=== PATIENT | female | born 1970 | race Two or more races ===

== ENCOUNTER 2023-05-03 11:10 | Emergency (ER) | payer SELFPAY ==
[~2023-05-03] VITALS: Ht 157.5 cm; Wt 71.2 kg
[2023-05-03] MEDS ORDERED: SODIUM CHLORIDE 0.9% 1,000 ML IV ONE (11:30)
[2023-05-03 11:48] LABS: Hemoglobin 13.7 g/dL (12.2-16.2); Mean Corpuscular Hemoglobin 32.1 pg (28.0-32.0); Mean Corpuscular Hgb Conc. 34.2 g/dL (32.0-36.0); Mean Corpuscular Volume 93.8 fL (80.0-100.0); Red Blood Cells 4.27 10^6/uL (4.0-5.20); Red Cell Distribution Width 12.7 % (11.8-14.3); White Blood Cell 12.9 10^3/uL (4.4-10.8)
[2023-05-03 11:54] LABS: Band Neutrophils % (manual) 0; Basophils % (manual) 0 (0.0-2.0); Blast Cells 0; Metamyelocytes % 0; Myelocytes % 0; Promyelocytes % 0; Reactive Lymphocytes 0
[2023-05-03 12:09] LABS: Alanine Aminotransferase 13 U/L (7-40); Albumin 4.2 g/dL (3.2-4.8); Alkaline Phosphatase 85 U/L (46-116); Anion Gap 5 (5-15); Aspartate Aminotransferase 9 U/L (13-40); BUN/Creatinine Ratio 17.2 (10.0-20.0); Bilirubin, Total 0.7 mg/dL (0.2-1.0); Blood Urea Nitrogen 11 mg/dL (9-23); Calcium 8.6 mg/dL (8.7-10.4); Carbon Dioxide 26 mmol/L (20-30); Chloride 105 mmol/L (98-107); Glucose 133 mg/dL (74-106); Potassium 3.9 mmol/L (3.5-5.1); Sodium 136 mmol/L (136-145); Total Protein 7.1 g/dL (5.7-8.2)
[2023-05-03 13:14] LABS: Eosinophils % (manual) 1 (0-7); Lymphocytes % (manual) 2 (10.0-50.0); Monocytes % (manual) 1 (0-12); Platelet Estimate Adequate
[2023-05-03 13:24] LABS: Urine Bacteria NONE SEEN /hpf (None Seen); Urine Blood 3+ /uL (Negative); Urine Clarity HAZY (Clear); Urine Color PINK (Yellow); Urine Mucus FEW (None Seen); Urine Protein, UAD 1+ (Negative); Urine Specific Gravity 1.024 (1.001-1.035); Urine Sperm PRESENT /hpf (None Seen); Urine Urobilinogen Normal (Negative); Urine WBC 43 /hpf (0 - 5)
[2023-05-03 13:57] LABS: COVID19 ANTIGEN SOFIA FIA NEGATIVE (NEGATIVE)
[2023-05-03] MEDS ORDERED: CIPR-173 PO (14:09)
[2023-05-03 14:11] VITALS: BP 108/48; PULSE 109; RESP 18; TEMP 98.2; O2SAT 97
[2023-05-03] MEDS ORDERED: ZOFR4T PO (14:13)
== END 2023-05-03 14:22 | disposition home or self-care (01) ==
LOC: ER 11:10
DX: N39.0 Urinary tract infection, site not specified (principal); Z20.822 Contact with and (suspected) exposure to COVID-19
CPT/HCPCS: 36415; 71046; 80053; 81001; 85007; 85027; 87426; 93005; 96360; 99285; J7030

== ENCOUNTER 2023-07-08 23:55 | Inpatient (IN) | payer SELFPAY ==
[~2023-07-08] VITALS: Ht 165.1 cm; Wt 55.5 kg
[~2023-07-08 23:55] MED LIST: CIPR-173 PO; ZOFR4T PO
[2023-07-09 00:49] LABS: Urine Bacteria NONE SEEN /hpf (None Seen); Urine Blood 3+ /uL (Negative); Urine Clarity HAZY (Clear); Urine Color Yellow (Yellow); Urine Mucus FEW (None Seen); Urine Protein, UAD TRACE (Negative); Urine Specific Gravity 1.022 (1.001-1.035); Urine Urobilinogen Normal (Negative); Urine WBC 17 /hpf (0 - 5)
[2023-07-09 01:10] LABS: Basophils # (auto) 0 10 ^3/uL (0-0.2); Basophils % (auto) 0.1 % (0.0-2.0); Eosinophils # (auto) 0 10 ^3/uL (0-0.8); Eosinophils % (auto) 0.1 % (0.0-7.0); Hematocrit 37.3 % (36.0-46.0); Hemoglobin 12.4 g/dL (12.2-16.2); Lymphocytes # (auto) 1.1 10 ^3/uL (0.4-5.4); Lymphocytes % (auto) 6.3 % (10.0-50.0); Mean Corpuscular Hgb Conc. 33.3 g/dL (32.0-36.0); Mean Corpuscular Volume 93.1 fL (80.0-100.0); Monocytes % (auto) 5.4 % (0.0-12.0); Neutrophils # (auto) 15.7 10 ^3/uL (1.6-8.6); Neutrophils % (auto) 88.1 % (37.0-80.0); Red Blood Cells 4.01 10^6/uL (4.0-5.20); Red Cell Distribution Width 12.5 % (11.8-14.3); White Blood Cell 17.8 10^3/uL (4.4-10.8)
[2023-07-09 01:45] LABS: Alanine Aminotransferase 18 U/L (7-40); Albumin 4.5 g/dL (3.2-4.8); Alkaline Phosphatase 80 U/L (46-116); Anion Gap 5 (5-15); Aspartate Aminotransferase 16 U/L (13-40); BUN/Creatinine Ratio 15.4 (10.0-20.0); Bilirubin, Total 0.8 mg/dL (0.2-1.0); Blood Urea Nitrogen 10 mg/dL (9-23); Calcium 9.2 mg/dL (8.7-10.4); Carbon Dioxide 28 mmol/L (20-30); Chloride 103 mmol/L (98-107); Glucose 117 mg/dL (74-106); Lipase 25 U/L (12-53); Potassium 3.9 mmol/L (3.5-5.1); Sodium 136 mmol/L (136-145); Total Protein 7.5 g/dL (5.7-8.2)
[2023-07-09] MEDS ORDERED: SODIUM CHLORIDE 0.9% 1,000 ML IVB ONE (07:15)
[2023-07-09] MEDS ORDERED: MORPHINE SULFATE 4 MG/ML SYR/VIAL IV ONE (07:15)
[2023-07-09] MEDS ORDERED: ONDANSETRON HCL 4 MG/2 ML VIAL IV ONE (07:15)
[2023-07-09] MEDS ORDERED: metroNIDAZOLE 500MG/100ML 100 ML IV ONE (08:00)
[2023-07-09] MEDS ORDERED: PANTOPRAZOLE 40 MG/10 ML VIAL INJ IV ONE (08:45)
[2023-07-09] MEDS ORDERED: cefTRIAXone 1GM/50ML D5W 50 ML IV ONE (08:45)
[2023-07-09] MEDS: SODIUM CHLORIDE 0.9% 1,000 ML IV SCH ×2 (09:29→18:36)
[2023-07-09 09:30] VITALS: PULSE 68; RESP 16; O2SAT 96
[2023-07-09 09:42] LABS: Erythrocyte Sedimentation Rate 13 mm/hr (0-20)
[2023-07-09] MEDS: ENOXAPARIN SOD 40 MG/0.4 ML SYRINGE SC SCH (10:00)
[2023-07-09] MEDS: metroNIDAZOLE 500MG/100ML 100 ML IV SCH ×2 (15:54→20:50)
[2023-07-09 17:59] VITALS: BP 100/47; PULSE 92; RESP 16; TEMP 99.1; O2SAT 100
[2023-07-09 18:00] VITALS: BP 100/47; PULSE 92; RESP 16; TEMP 99.1; O2SAT 100
[2023-07-09] MEDS: ACETAMINOPHEN 325 MG TAB PO PRN (18:15)
[2023-07-09 22:00] VITALS: BP 97/37; PULSE 87; RESP 18; TEMP 98.6; O2SAT 97
[2023-07-10] VITALS (7 sets, daily range): BP systolic 93–104; BP diastolic 44–50; PULSE 81–97; RESP 16–20; TEMP 98.2–100.9; O2SAT 95–98
[2023-07-10] MEDS: SODIUM CHLORIDE 0.9% 1,000 ML IV SCH ×3 (01:25→13:24)
[2023-07-10] MEDS: metroNIDAZOLE 500MG/100ML 100 ML IV SCH ×3 (05:27→21:21)
[2023-07-10 06:33] LABS: Basophils # (auto) 0 10 ^3/uL (0-0.2); Basophils % (auto) 0.1 % (0.0-2.0); Eosinophils # (auto) 0 10 ^3/uL (0-0.8); Eosinophils % (auto) 0.1 % (0.0-7.0); Hematocrit 33.6 % (36.0-46.0); Hemoglobin 11.1 g/dL (12.2-16.2); Lymphocytes # (auto) 0.9 10 ^3/uL (0.4-5.4); Lymphocytes % (auto) 5.9 % (10.0-50.0); Mean Corpuscular Hemoglobin 30.8 pg (28.0-32.0); Mean Corpuscular Volume 93.3 fL (80.0-100.0); Monocytes # (auto) 0.8 10 ^3/uL (0-1.3); Monocytes % (auto) 5.5 % (0.0-12.0); Neutrophils # (auto) 12.9 10 ^3/uL (1.6-8.6); Neutrophils % (auto) 88.4 % (37.0-80.0); Red Cell Distribution Width 12.4 % (11.8-14.3); White Blood Cell 14.6 10^3/uL (4.4-10.8)
[2023-07-10 06:43] LABS: Alanine Aminotransferase 13 U/L (7-40); Albumin 3.7 g/dL (3.2-4.8); Alkaline Phosphatase 76 U/L (46-116); Anion Gap 7 (5-15); Aspartate Aminotransferase 11 U/L (13-40); Blood Urea Nitrogen 7 mg/dL (9-23); Calcium 8.1 mg/dL (8.7-10.4); Carbon Dioxide 24 mmol/L (20-30); Chloride 107 mmol/L (98-107); Glucose 104 mg/dL (74-106); Potassium 3.6 mmol/L (3.5-5.1); Sodium 138 mmol/L (136-145)
[2023-07-10 06:44] LABS: Bilirubin, Total 0.9 mg/dL (0.2-1.0); Total Protein 6.3 g/dL (5.7-8.2)
[2023-07-10] MEDS: PANTOPRAZOLE 40 MG/10 ML VIAL INJ IV SCH (09:39)
[2023-07-10] MEDS: cefTRIAXone 1GM/50ML D5W 50 ML IV SCH (09:39)
[2023-07-10] MEDS: ACETAMINOPHEN 325 MG TAB PO PRN ×2 (09:40→20:04)
[2023-07-10] MEDS: ENOXAPARIN SOD 40 MG/0.4 ML SYRINGE SC SCH (09:46)
[2023-07-11 04:37] VITALS: BP 98/49; PULSE 73; RESP 16; TEMP 99; O2SAT 98
[2023-07-11 06:09] LABS: Anion Gap 5 (5-15); Carbon Dioxide 26 mmol/L (20-30); Chloride 108 mmol/L (98-107); Potassium 3.6 mmol/L (3.5-5.1); Sodium 139 mmol/L (136-145)
[2023-07-11 06:11] LABS: INR 1.09 (0.9-1.15); Partial Thromboplastin Time 35.1 SEC (24.5-34.5); Prothrombin Time 11.4 sec (9.3-11.8)
[2023-07-11 06:15] LABS: BUN/Creatinine Ratio 9.3 (10.0-20.0); Blood Urea Nitrogen 5 mg/dL (9-23); Glucose 86 mg/dL (74-106)
[2023-07-11] MEDS: metroNIDAZOLE 500MG/100ML 100 ML IV SCH ×3 (06:23→21:22)
[2023-07-11] MEDS: SODIUM CHLORIDE 0.9% 1,000 ML IV SCH ×2 (06:25→21:21)
[2023-07-11 07:06] LABS: Basophils # (auto) 0 10 ^3/uL (0-0.2); Basophils % (auto) 0.2 % (0.0-2.0); Eosinophils # (auto) 0 10 ^3/uL (0-0.8); Eosinophils % (auto) 0.2 % (0.0-7.0); Hematocrit 32.3 % (36.0-46.0); Hemoglobin 10.7 g/dL (12.2-16.2); Lymphocytes # (auto) 0.9 10 ^3/uL (0.4-5.4); Lymphocytes % (auto) 7.1 % (10.0-50.0); Mean Corpuscular Hemoglobin 31.2 pg (28.0-32.0); Mean Corpuscular Hgb Conc. 33.3 g/dL (32.0-36.0); Monocytes % (auto) 7.8 % (0.0-12.0); Neutrophils # (auto) 10.5 10 ^3/uL (1.6-8.6); Neutrophils % (auto) 84.7 % (37.0-80.0); Red Blood Cells 3.43 10^6/uL (4.0-5.20); Red Cell Distribution Width 12.6 % (11.8-14.3); White Blood Cell 12.3 10^3/uL (4.4-10.8)
[2023-07-11 09:00] VITALS: BP 101/46; PULSE 77; RESP 20; TEMP 99.5; O2SAT 99
[2023-07-11] MEDS: cefTRIAXone 1GM/50ML D5W 50 ML IV SCH (09:59)
[2023-07-11] MEDS: PANTOPRAZOLE 40 MG/10 ML VIAL INJ IV SCH (09:59)
[2023-07-11 13:16] VITALS: BP 99/42; PULSE 84; RESP 20; TEMP 99.3; O2SAT 97
[2023-07-11 17:00] VITALS: BP 95/42; PULSE 91; RESP 20; O2SAT 98
[2023-07-11 22:00] VITALS: BP 89/60; PULSE 79; RESP 16; TEMP 98.7; O2SAT 97
[2023-07-12] MEDS: SODIUM CHLORIDE 0.9% 1,000 ML IV SCH ×3 (02:15→23:50)
[2023-07-12 05:00] VITALS: BP 97/64; PULSE 90; RESP 16; TEMP 98.2; O2SAT 99
[2023-07-12] MEDS: metroNIDAZOLE 500MG/100ML 100 ML IV SCH ×3 (06:01→21:27)
[2023-07-12 06:49] LABS: Basophils # (auto) 0 10 ^3/uL (0-0.2); Basophils % (auto) 0.3 % (0.0-2.0); Eosinophils # (auto) 0 10 ^3/uL (0-0.8); Eosinophils % (auto) 0.4 % (0.0-7.0); Hematocrit 32.8 % (36.0-46.0); Hemoglobin 10.9 g/dL (12.2-16.2); Lymphocytes # (auto) 1.1 10 ^3/uL (0.4-5.4); Lymphocytes % (auto) 10.2 % (10.0-50.0); Mean Corpuscular Hemoglobin 31.4 pg (28.0-32.0); Mean Corpuscular Hgb Conc. 33.2 g/dL (32.0-36.0); Mean Corpuscular Volume 94.7 fL (80.0-100.0); Monocytes # (auto) 0.9 10 ^3/uL (0-1.3); Monocytes % (auto) 8.5 % (0.0-12.0); Neutrophils # (auto) 8.3 10 ^3/uL (1.6-8.6); Neutrophils % (auto) 80.6 % (37.0-80.0); Red Blood Cells 3.46 10^6/uL (4.0-5.20); Red Cell Distribution Width 12.5 % (11.8-14.3); White Blood Cell 10.3 10^3/uL (4.4-10.8)
[2023-07-12 07:05] LABS: Anion Gap 11 (5-15); Carbon Dioxide 17 mmol/L (20-30); Chloride 110 mmol/L (98-107); Potassium 3.6 mmol/L (3.5-5.1); Sodium 138 mmol/L (136-145)
[2023-07-12 07:06] LABS: Calcium 8.4 mg/dL (8.5-10.1)
[2023-07-12 07:11] LABS: BUN/Creatinine Ratio 19.1 (10.0-20.0); Blood Urea Nitrogen 9 mg/dL (9-23); Glucose 53 mg/dL (74-106)
[2023-07-12 09:00] VITALS: BP 94/55; PULSE 74; RESP 17; TEMP 98.3; O2SAT 99
[2023-07-12] MEDS: PANTOPRAZOLE 40 MG/10 ML VIAL INJ IV SCH (09:44)
[2023-07-12] MEDS: cefTRIAXone 1GM/50ML D5W 50 ML IV SCH (09:45)
[2023-07-12 22:00] VITALS: BP 103/35; PULSE 81; RESP 15; TEMP 98.3; O2SAT 96
[2023-07-12] MEDS: ACETAMINOPHEN 325 MG TAB PO PRN (22:05)
[2023-07-13 05:00] VITALS: BP 100/39; PULSE 70; RESP 15; TEMP 98.4; O2SAT 95
[2023-07-13] MEDS: metroNIDAZOLE 500MG/100ML 100 ML IV SCH ×3 (05:39→22:00)
[2023-07-13 06:10] LABS: Basophils # (auto) 0 10 ^3/uL (0-0.2); Basophils % (auto) 0.4 % (0.0-2.0); Eosinophils # (auto) 0.1 10 ^3/uL (0-0.8); Eosinophils % (auto) 0.8 % (0.0-7.0); Hemoglobin 10.8 g/dL (12.2-16.2); Lymphocytes # (auto) 0.9 10 ^3/uL (0.4-5.4); Lymphocytes % (auto) 12.6 % (10.0-50.0); Mean Corpuscular Hemoglobin 32.3 pg (28.0-32.0); Mean Corpuscular Hgb Conc. 34.8 g/dL (32.0-36.0); Mean Corpuscular Volume 92.7 fL (80.0-100.0); Monocytes # (auto) 0.7 10 ^3/uL (0-1.3); Monocytes % (auto) 9.2 % (0.0-12.0); Neutrophils # (auto) 5.6 10 ^3/uL (1.6-8.6); Red Blood Cells 3.35 10^6/uL (4.0-5.20); Red Cell Distribution Width 12.3 % (11.8-14.3); White Blood Cell 7.2 10^3/uL (4.4-10.8)
[2023-07-13] MEDS: PANTOPRAZOLE 40 MG/10 ML VIAL INJ IV SCH (09:36)
[2023-07-13] MEDS: cefTRIAXone 1GM/50ML D5W 50 ML IV SCH (09:37)
[2023-07-13 10:13] VITALS: BP 109/66; PULSE 67; RESP 16; TEMP 98.4; O2SAT 99
[2023-07-13] MEDS ORDERED: OMNIPAQUE 12mg/ml 500ml ORAL SOLUTION PO ONE (11:51)
[2023-07-13 13:04] VITALS: BP 112/56; PULSE 69; RESP 16; TEMP 98.1; O2SAT 97
[2023-07-13] MEDS: SODIUM CHLORIDE 0.9% 1,000 ML IV SCH (14:11)
[2023-07-13 20:00] VITALS: RESP 16
[2023-07-13 22:00] VITALS: BP 102/52; PULSE 67; RESP 16; TEMP 98.3; O2SAT 98
[2023-07-14] VITALS (8 sets, daily range): BP systolic 99–108; BP diastolic 44–63; PULSE 63–101; RESP 10–20; TEMP 36.8; O2SAT 94–98
[2023-07-14] MEDS: SODIUM CHLORIDE 0.9% 1,000 ML IV SCH (02:30)
[2023-07-14] MEDS: metroNIDAZOLE 500MG/100ML 100 ML IV SCH ×3 (06:00→22:14)
[2023-07-14] MEDS ORDERED: ROCURONIUM 10MG/ML 10ML VIAL IV ONE (06:56)
[2023-07-14] MEDS ORDERED: SUCCINYLCHOLINE CHLORIDE 20 MG/ML 10ML VIAL IV ONE (06:56)
[2023-07-14] MEDS ORDERED: LIDOCAINE W/ EPINEPHRINE 1% 20ML VIAL ONE (07:00)
[2023-07-14] MEDS ORDERED: BUPIVACAINE HCL 0.25% P/F 10 ML VIAL ONE (07:00)
[2023-07-14] MEDS ORDERED: LIDOCAINE 2% JELLY 11ml (GLYDO) ONE (07:01)
[2023-07-14] MEDS ORDERED: ONDANSETRON HCL 4 MG/2 ML VIAL ONE (07:03)
[2023-07-14] MEDS ORDERED: MIDAZOLAM HCL 2MG/2ML 2ml VIAL (1mg/ml) ONE (07:03)
[2023-07-14] MEDS ORDERED: NEOSTIGMINE 1 MG/ML INJ (10mg/10ML VIAL) ONE (07:03)
[2023-07-14] MEDS ORDERED: GLYCOPYRROLATE 0.2 MG/ML 1ML VIAL ONE (07:03)
[2023-07-14] MEDS ORDERED: fentaNYL CITRATE 100 MCG/2 ML VL ONE ×2 (07:03→08:20)
[2023-07-14] MEDS ORDERED: MEPERIDINE HCL (25 MG/ML) 1ML VIAL ONE ×3 (07:03→09:49)
[2023-07-14] MEDS ORDERED: SODIUM CHLORIDE LOCK 10 ML ONE (07:03)
[2023-07-14] MEDS ORDERED: PROPOFOL 10 MG/ML 20 ML IV ONE ×2 (07:03→07:27)
[2023-07-14] MEDS ORDERED: ceFAZolin 2 GM/D5W100ml 100 ML IV ONE (07:04)
[2023-07-14] MEDS ORDERED: MORPHINE SULFATE INJ 2 MG/ml SYRG IV PRN (07:15)
[2023-07-14] MEDS ORDERED: HYDROmorphone HCL 2 MG/ML VL/or syr IV PRN ×2 (07:15)
[2023-07-14] MEDS ORDERED: METOCLOPRAMIDE HCL 5MG/ml INJ 2ml VIAL IV PRN (07:15)
[2023-07-14] MEDS ORDERED: KETOROLAC TROMETH 60MG/2ML VIAL ONE ×2 (07:56→10:51)
[2023-07-14] MEDS: cefTRIAXone 1GM/50ML D5W 50 ML IV SCH (09:00)
[2023-07-14] MEDS ORDERED: POVIDONE IODINE 10 % TOPICAL OINT 30GM TOP ONE (09:08)
[2023-07-14] MEDS ORDERED: ONDANSETRON HCL 4 MG/2 ML VIAL IV PRN ×2 (09:30)
[2023-07-14] MEDS: PANTOPRAZOLE 40 MG/10 ML VIAL INJ IV SCH ×2 (10:00→14:40)
[2023-07-14] MEDS ORDERED: ACETAMINOPHEN IV 1000 MG/100ML (10MG/ML) IV ONE (12:00)
[2023-07-14] MEDS ORDERED: ceFAZolin 2 GM/D5W100ml 100 ML IV SCH (14:00)
[2023-07-14] MEDS: D5W/SOD CHL 0.45%/KCL 20MEQ 1,000 ML IV SCH ×2 (14:40→17:15)
[2023-07-14] MEDS: HYDROmorphone HCL 2 MG/ML VL/or syr IV PRN (14:41)
[2023-07-14] MEDS: ceFAZolin 2 GM/D5W100ml 100 ML IV SCH (22:00)
[2023-07-15] MEDS: HYDROmorphone HCL 2 MG/ML VL/or syr IV PRN ×3 (00:04→20:42)
[2023-07-15] MEDS: D5W/SOD CHL 0.45%/KCL 20MEQ 1,000 ML IV SCH ×3 (02:10→15:00)
[2023-07-15] MEDS: ceFAZolin 2 GM/D5W100ml 100 ML IV SCH ×3 (05:36→22:04)
[2023-07-15] MEDS: metroNIDAZOLE 500MG/100ML 100 ML IV SCH ×3 (06:00→22:03)
[2023-07-15 06:28] VITALS: BP 103/61; PULSE 90; RESP 18; TEMP 98.1; O2SAT 98
[2023-07-15 07:30] VITALS: TEMP 36.7
[2023-07-15] MEDS: PANTOPRAZOLE 40 MG/10 ML VIAL INJ IV SCH ×2 (08:14→09:49)
[2023-07-15 09:00] VITALS: BP 98/51; PULSE 59; RESP 17; TEMP 97.5; O2SAT 100
[2023-07-15] MEDS: ONDANSETRON HCL 4 MG/2 ML VIAL IV PRN ×2 (09:49→15:26)
[2023-07-15 17:00] VITALS: BP 117/58; PULSE 98; RESP 16; TEMP 98.3; O2SAT 99
[2023-07-15 22:00] VITALS: BP 101/63; PULSE 78; RESP 16; TEMP 98; O2SAT 93
[2023-07-16 05:00] VITALS: BP 110/58; PULSE 75; RESP 15; TEMP 97.6; O2SAT 95
[2023-07-16] MEDS: metroNIDAZOLE 500MG/100ML 100 ML IV SCH ×3 (06:03→22:08)
[2023-07-16] MEDS: D5W/SOD CHL 0.45%/KCL 20MEQ 1,000 ML IV SCH ×3 (06:03→22:08)
[2023-07-16] MEDS: ceFAZolin 2 GM/D5W100ml 100 ML IV SCH ×3 (06:03→22:10)
[2023-07-16 08:43] VITALS: BP 100/56; PULSE 74; RESP 18; TEMP 97.7; O2SAT 100
[2023-07-16] MEDS: HYDROmorphone HCL 2 MG/ML VL/or syr IV PRN (09:30)
[2023-07-16] MEDS: PANTOPRAZOLE 40 MG/10 ML VIAL INJ IV SCH ×2 (10:00)
[2023-07-16 12:46] VITALS: BP 104/39; PULSE 76; RESP 16; TEMP 97.6; O2SAT 100
[2023-07-16 17:00] VITALS: BP 110/57; PULSE 69; RESP 20; TEMP 97.8; O2SAT 100
[2023-07-16 22:00] VITALS: BP 103/43; PULSE 93; RESP 16; TEMP 98.2; O2SAT 94
[2023-07-17] MEDS: D5W/SOD CHL 0.45%/KCL 20MEQ 1,000 ML IV SCH ×3 (04:10→22:59)
[2023-07-17 05:00] VITALS: BP 102/48; PULSE 83; RESP 14; TEMP 98.2; O2SAT 95
[2023-07-17] MEDS: metroNIDAZOLE 500MG/100ML 100 ML IV SCH ×3 (05:41→21:18)
[2023-07-17] MEDS: ceFAZolin 2 GM/D5W100ml 100 ML IV SCH (05:49)
[2023-07-17 08:51] VITALS: BP 102/50; PULSE 70; RESP 16; TEMP 98.1; O2SAT 100
[2023-07-17 09:02] LABS: Basophils # (auto) 0 10 ^3/uL (0-0.2); Basophils % (auto) 0.4 % (0.0-2.0); Eosinophils # (auto) 0 10 ^3/uL (0-0.8); Eosinophils % (auto) 0.2 % (0.0-7.0); Hematocrit 34.6 % (36.0-46.0); Hemoglobin 11.7 g/dL (12.2-16.2); Lymphocytes # (auto) 1.2 10 ^3/uL (0.4-5.4); Lymphocytes % (auto) 15.5 % (10.0-50.0); Mean Corpuscular Hemoglobin 31.4 pg (28.0-32.0); Mean Corpuscular Volume 92.4 fL (80.0-100.0); Monocytes # (auto) 0.6 10 ^3/uL (0-1.3); Neutrophils # (auto) 5.7 10 ^3/uL (1.6-8.6); Neutrophils % (auto) 75.9 % (37.0-80.0); Red Blood Cells 3.74 10^6/uL (4.0-5.20); Red Cell Distribution Width 12.6 % (11.8-14.3); White Blood Cell 7.5 10^3/uL (4.4-10.8)
[2023-07-17 09:11] LABS: Chloride 105 mmol/L (98-107); Potassium 3.6 mmol/L (3.5-5.1); Sodium 140 mmol/L (136-145)
[2023-07-17 09:12] LABS: Anion Gap 6 (5-15); Calcium 8.8 mg/dL (8.5-10.1); Carbon Dioxide 29 mmol/L (20-30)
[2023-07-17 09:17] LABS: Glucose 113 mg/dL (74-106)
[2023-07-17 09:19] LABS: BUN/Creatinine Ratio 10.4 (10.0-20.0); Blood Urea Nitrogen < 5 mg/dL (9-23)
[2023-07-17] MEDS ORDERED: HYDROmorphone HCL 2 MG/ML VL/or syr IV PRN (09:45)
[2023-07-17] MEDS: PANTOPRAZOLE 40 MG/10 ML VIAL INJ IV SCH (10:10)
[2023-07-17 12:46] VITALS: BP 108/55; PULSE 65; RESP 15; TEMP 97.8; O2SAT 97
[2023-07-17 17:02] VITALS: BP 109/68; PULSE 83; RESP 17; TEMP 98.2; O2SAT 97
[2023-07-17 22:00] VITALS: BP 107/70; PULSE 74; RESP 16; TEMP 98.3; O2SAT 99
[2023-07-18 05:00] VITALS: BP 98/56; PULSE 94; RESP 16; TEMP 98.1; O2SAT 96
[2023-07-18] MEDS: D5W/SOD CHL 0.45%/KCL 20MEQ 1,000 ML IV SCH ×2 (05:17→14:57)
[2023-07-18] MEDS: metroNIDAZOLE 500MG/100ML 100 ML IV SCH ×3 (05:17→21:14)
[2023-07-18 06:01] LABS: Basophils # (auto) 0.1 10 ^3/uL (0-0.2); Basophils % (auto) 1.1 % (0.0-2.0); Eosinophils # (auto) 0.1 10 ^3/uL (0-0.8); Eosinophils % (auto) 1.1 % (0.0-7.0); Hematocrit 35.3 % (36.0-46.0); Hemoglobin 11.7 g/dL (12.2-16.2); Lymphocytes # (auto) 1.1 10 ^3/uL (0.4-5.4); Lymphocytes % (auto) 15.9 % (10.0-50.0); Mean Corpuscular Hgb Conc. 33.2 g/dL (32.0-36.0); Mean Corpuscular Volume 93.4 fL (80.0-100.0); Monocytes # (auto) 0.6 10 ^3/uL (0-1.3); Monocytes % (auto) 8.1 % (0.0-12.0); Neutrophils # (auto) 5.3 10 ^3/uL (1.6-8.6); Neutrophils % (auto) 73.8 % (37.0-80.0); Nucleated Red Blood Cells % 0.1 %; Red Blood Cells 3.78 10^6/uL (4.0-5.20); Red Cell Distribution Width 12.6 % (11.8-14.3); White Blood Cell 7.1 10^3/uL (4.4-10.8)
[2023-07-18 06:11] LABS: Chloride 105 mmol/L (98-107); Potassium 3.8 mmol/L (3.5-5.1); Sodium 140 mmol/L (136-145)
[2023-07-18 06:12] LABS: Anion Gap 6 (5-15); Carbon Dioxide 29 mmol/L (20-30)
[2023-07-18 06:17] LABS: BUN/Creatinine Ratio 11.3 (10.0-20.0); Blood Urea Nitrogen 6 mg/dL (9-23); Glucose 126 mg/dL (74-106)
[2023-07-18 08:00] VITALS: PULSE 78; RESP 18
[2023-07-18 09:00] VITALS: BP 102/48; PULSE 78; RESP 15; TEMP 98.1; O2SAT 97
[2023-07-18] MEDS: PANTOPRAZOLE 40 MG/10 ML VIAL INJ IV SCH (09:15)
[2023-07-18] MEDS: cefTRIAXone 1GM/50ML D5W 50 ML IV SCH (09:15)
[2023-07-18 13:00] VITALS: BP 100/49; PULSE 87; RESP 16; TEMP 98.8; O2SAT 97
[2023-07-18 17:00] VITALS: BP 96/55; PULSE 82; RESP 16; TEMP 97.8; O2SAT 97
[2023-07-18 22:09] VITALS: BP 101/53; PULSE 88; RESP 18; TEMP 98.3; O2SAT 96
[2023-07-19] MEDS: ACETAMINOPHEN 325 MG TAB PO PRN (02:58)
[2023-07-19] MEDS: D5W/SOD CHL 0.45%/KCL 20MEQ 1,000 ML IV SCH ×3 (05:05→22:29)
[2023-07-19] MEDS: metroNIDAZOLE 500MG/100ML 100 ML IV SCH (05:06)
[2023-07-19 05:12] VITALS: BP 98/52; PULSE 80; RESP 18; TEMP 98.1; O2SAT 97
[2023-07-19 06:36] LABS: Anion Gap 4 (5-15); Carbon Dioxide 29 mmol/L (20-30); Chloride 106 mmol/L (98-107); Potassium 4.9 mmol/L (3.5-5.1); Sodium 139 mmol/L (136-145)
[2023-07-19 06:37] LABS: Calcium 9.2 mg/dL (8.5-10.1)
[2023-07-19 06:42] LABS: Glucose 94 mg/dL (74-106)
[2023-07-19 06:44] LABS: BUN/Creatinine Ratio 8.3 (10.0-20.0); Blood Urea Nitrogen < 5 mg/dL (9-23)
[2023-07-19 08:00] VITALS: PULSE 82; RESP 16; O2SAT 97
[2023-07-19 09:00] VITALS: BP 92/50; PULSE 86; RESP 18; TEMP 98.1; O2SAT 98
[2023-07-19] MEDS: cefTRIAXone 1GM/50ML D5W 50 ML IV SCH (10:21)
[2023-07-19] MEDS: PANTOPRAZOLE 40 MG/10 ML VIAL INJ IV SCH (10:21)
[2023-07-19] MEDS: metroNIDAZOLE 500 MG TAB PO SCH ×2 (13:37→22:25)
[2023-07-19 16:30] VITALS: BP 105/54; PULSE 71; RESP 17; TEMP 97.9; O2SAT 98
[2023-07-19 22:00] VITALS: BP 98/62; PULSE 74; RESP 20; TEMP 98.7; O2SAT 98
[2023-07-20 05:00] VITALS: BP 101/54; PULSE 86; RESP 20; TEMP 98.8; O2SAT 96
[2023-07-20] MEDS: metroNIDAZOLE 500 MG TAB PO SCH ×3 (05:26→22:18)
[2023-07-20 08:10] VITALS: O2SAT 97
[2023-07-20 09:00] VITALS: BP 99/49; PULSE 79; RESP 18; TEMP 98.2; O2SAT 97
[2023-07-20] MEDS: PANTOPRAZOLE 40 MG/10 ML VIAL INJ IV SCH (09:07)
[2023-07-20] MEDS: cefTRIAXone 1GM/50ML D5W 50 ML IV SCH (09:08)
[2023-07-20] MEDS ORDERED: TRAM50TA2 PO (09:58)
[2023-07-20] MEDS ORDERED: MET500T PO (09:58)
[2023-07-20] MEDS ORDERED: LEVO500T91 PO (09:58)
[2023-07-20 13:00] VITALS: BP 93/50; PULSE 88; RESP 18; TEMP 98.5; O2SAT 98
[2023-07-20 22:00] VITALS: BP 92/55; PULSE 80; RESP 16; TEMP 98.2; O2SAT 98
[2023-07-21 05:00] VITALS: BP 88/58; PULSE 92; RESP 18; TEMP 98.3; O2SAT 97
[2023-07-21] MEDS: metroNIDAZOLE 500 MG TAB PO SCH ×2 (06:54→14:40)
[2023-07-21] MEDS: ACETAMINOPHEN 325 MG TAB PO PRN (07:01)
[2023-07-21 08:00] VITALS: BP 97/63; PULSE 83; RESP 16; TEMP 97.8; O2SAT 99
[2023-07-21 08:10] VITALS: BP 97/63; PULSE 83; RESP 16; TEMP 97.8
[2023-07-21] MEDS: cefTRIAXone 1GM/50ML D5W 50 ML IV SCH (09:00)
[2023-07-21 12:00] VITALS: BP 93/50; PULSE 75; RESP 16; TEMP 98.2; O2SAT 97
== END 2023-07-21 16:30 | disposition home or self-care (01) | DRG 854 ==
LOC: ER 23:55 → OVERFLOW 07-09 08:43 → CENTRAL 07-09 16:50
PROVIDERS: ADMIT Nurse Practitioner Family; ATTEND Internal Medicine
PROC: 0DJD4ZZ Inspection of Lower Intestinal Tract, Percutaneous Endoscopic Approach (ICD-10-PCS; 2023-07-14)
PROC: 0DTF0ZZ Resection of Right Large Intestine, Open Approach (ICD-10-PCS; principal; 2023-07-14 07:27)
DX: A41.9 Sepsis, unspecified organism (principal); K57.20 Diverticulitis of large intestine with perforation and abscess without bleeding; N39.0 Urinary tract infection, site not specified; K52.9 Noninfective gastroenteritis and colitis, unspecified; K59.00 Constipation, unspecified; Z80.0 Family history of malignant neoplasm of digestive organs; Z53.31 Laparoscopic surgical procedure converted to open procedure
CPT/HCPCS: 36415; 71045; 74176; 76705; 80048; 80053; 81001; 81025; 82378; 83690; 85025; 85610; 85652; 85730; 86141; 86850; 86900; 86901; 87040; 87045; 87086; 87177; 87427; 96365; 96367; 96375; 97110; 97116; 97163; C9113; G0378; J0131; J0330; J0696; J1885; J2250; J2405; J2704; J3490